=== PATIENT | female | born 1955 | race Caucasian/White ===

== ENCOUNTER 2019-05-20 13:21 | Emergency (ER) | payer MEDICARE, BC ==
--- NOTE | 2019-05-20 14:06 | EDM.PDOC ---
ED HPI GENERAL MEDICAL PROBLEM - General Chief Complaint: General Stated Complaint: ELEVATED BP Time Seen by Provider: 05/20/19 13:50 Source of Information: Reports: Patient History Limitations: Reports: No Limitations - History of Present Illness INITIAL COMMENTS - FREE TEXT/NARRATIVE: Patient comes into the emergency department with complaint of elevated blood pressure. Patient states that she did have a headache this morning and ended up taking her blood pressure and noted that it was elevated. Patient does not have a history of hypertension but has been told by her primary care doctor that her blood pressure has been elevated in the past. Patient did have a cortisone injection in here knee yesterday and she is unsure if it's related or not. Patient denies any numbness, tingling, shortness of breath, visual changes, blurred vision, chest pain, nausea, or peripheral edema. Patient states that she presented to the emergency department due to the concern regarding the blood pressure reading on her machine at home but has no active concerns or complaints. Onset: Sudden Severity: Mild Improves with: Reports: None Worsens with: Reports: None Associated Symptoms: Reports: No Other Symptoms - Related Data Allergies Allergy/AdvReac Type Severity Reaction Status Date / Time No Known Drug Allergies Allergy Other Verified 06/22/15 08:16 theophylline AdvReac Anxiety Verified 06/22/15 08:16 Home Meds: Home Meds Albuterol Sulfate [Proair Hfa] 1 - 2 puff PO QID PRN 06/19/15 [History] Aspirin [Halfprin] 81 mg PO DAILY 06/19/15 [History] Calcium Carbonate [Calcium] 1 tab PO DAILY 06/19/15 [History] Chromium Amino Acid Chelate [Chromium] 1 cap PO BID 06/19/15 [History] Fluticasone/Salmeterol [Advair Hfa 230-21 Mcg Inhaler] 1 puff PO BID 06/19/15 [ History] Levothyroxine 1 tab PO DAILY 06/19/15 [History] Montelukast [Singulair] 1 tab PO DAILY 06/19/15 [History] Phentermine 0.5 tab PO DAILY 06/19/15 [History] metFORMIN [Glucophage] 1,000 mg PO DAILY 06/19/15 [History] Past Medical History HEENT History: Reports: Glaucoma Cardiovascular History: Reports: Hypertension Respiratory History: Reports: Asthma Gastrointestinal History: Reports: Cirrhosis, Colon Polyp Other Gastrointestinal History: heme + stool [employer]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 Constitutional: Reports: No Symptoms HEENT: Reports: No Symptoms Respiratory: Reports: No Symptoms Cardiovascular: Reports: No Symptoms Endocrine: Reports: No Symptoms GI/Abdominal: Reports: No Symptoms : Reports: No Symptoms Musculoskeletal: Reports: No Symptoms Skin: Reports: No Symptoms Neurological: Reports: No Symptoms Psychiatric: Reports: No Symptoms Hematologic/Lymphatic: Reports: No Symptoms Immunologic: Reports: No Symptoms ED EXAM, GENERAL - Physical Exam Exam: See Below Exam Limited By: No Limitations General Appearance: Alert, WD/WN, No Apparent Distress Eye Exam: Bilateral Eye: EOMI, PERRL Ears: Normal External Exam, Normal Canal, Hearing Grossly Normal, Normal TMs Head: Atraumatic, Normocephalic Neck: Normal Inspection, Supple, Non-Tender, Full Range of Motion Respiratory/Chest: No Respiratory Distress, No Accessory Muscle Use, Chest Non- Tender Cardiovascular: Normal Peripheral Pulses, Regular Rate, Rhythm, No Edema Extremities: Normal Inspection, Normal Range of Motion, Non-Tender, No Pedal Edema, Normal Capillary Refill Neurological: Alert, Oriented, CN II-XII Intact, Normal Gait, No Motor/Sensory Deficits Psychiatric: Normal Affect, Normal Mood Skin Exam: Warm, Dry, Intact Course - Re-Assessments/Exams Free Text/Narrative Re-Assessment/Exam: 05/20/19 14:09 Patient has no concerns or complaints. Patient states that she feels back to her baseline. Departure - Departure Time of Disposition: 14:00 Disposition: Home, Self-Care 01 Condition: Good Clinical Impression: Elevated blood pressure reading - Discharge Information *PRESCRIPTION DRUG MONITORING PROGRAM REVIEWED*: Not Applicable *COPY OF PRESCRIPTION DRUG MONITORING REPORT IN PATIENT HEATH: Not Applicable Instructions: How to Take Your Blood Pressure, [id number], Preventing Hypertension Referrals: April Braga MD [Primary Care Provider] - Forms: ED Department Discharge Additional Instructions: 1. take your blood pressures same time of day after resting for 15 minutes with legs uncrossed for 5 days and record the numbers 2. Follow up with your PCP with the readings for further recommendations and management 3. Activity and diet as tolerated 4. Call with any questions or concerns 5. Follow up with PCP or return if symptoms progress or worsen. - Assessment/Plan Assessment:: 1. Elevated blood pressure Plan: 1. Educated the patient regarding Blood pressure measurements and AHA Hypertension guidelines. 2. Also discussed with the patient to continue to take her blood pressure and a daily basis. It is advised that she take her blood pressure for the course of 5 days and record the readings. She is to then make appointment with her primary care provider to discuss the readings for further medication management. 3. Education was provided regarding activity, diet, follow-up care, blood pressure readings, and follow-up care. 4. All questions and concerns addressed prior to patient's discharge
[2019-05-20 14:15] VITALS: BP 179/87; PULSE 83
== END 2019-05-20 14:09 | disposition home or self-care (01) ==
LOC: VM.ED 13:21
DX: I10 Essential (primary) hypertension (principal); J45.909 Unspecified asthma, uncomplicated; M19.90 Unspecified osteoarthritis, unspecified site; E03.9 Hypothyroidism, unspecified; Z88.8 Allergy status to other drugs, medicaments and biological substances; Z79.82 Long term (current) use of aspirin; Z79.899 Other long term (current) drug therapy
CPT/HCPCS: 99283; 99284-GF

== ENCOUNTER 2021-02-16 15:33 | Emergency (ER) | payer MEDICARE, BC ==
--- NOTE | 2021-02-16 15:56 | EDM.PDOC ---
ED HPI GENERAL MEDICAL PROBLEM - General Stated Complaint: NOSE BLEEDS Time Seen by Provider: 02/16/21 15:46 Source of Information: Reports: Patient History Limitations: Reports: No Limitations - History of Present Illness INITIAL COMMENTS - FREE TEXT/NARRATIVE: Patient is post op day 7 from left JESUS on eliquis. She staets that she has had two nosebleeds today. each was brief and stopped without problems but she called her orthopedics surgeon and she was told to be seen in the ER. Not light headed or dizzy. eating and drinking well. no pain. no pain or fevers. Has not been picking at here nose. Also wouldlike her incision checked as there was a slight amount of rainage on the dressing - Related Data Allergies Allergy/AdvReac Type Severity Reaction Status Date / Time oxycodone Allergy Other Verified 05/20/19 14:20 theophylline AdvReac Anxiety Verified 06/22/15 08:16 Home Meds: Home Meds Albuterol Sulfate [Proair Hfa] 1 - 2 puff PO QID PRN 06/19/15 [History] Aspirin [Halfprin] 81 mg PO DAILY 06/19/15 [History] Calcium Carbonate [Calcium] 1 tab PO DAILY 06/19/15 [History] Chromium Amino Acid Chelate [Chromium] 1 cap PO BID 06/19/15 [History] Fluticasone Propion/Salmeterol [Advair Hfa 230-21 Mcg Inhaler] 1 puff PO BID 06/19/15 [History] Levothyroxine 1 tab PO DAILY 06/19/15 [History] Montelukast [Singulair] 1 tab PO DAILY 06/19/15 [History] Phentermine 0.5 tab PO DAILY 06/19/15 [History] metFORMIN [Glucophage] 1,000 mg PO DAILY 06/19/15 [History] Past Medical History HEENT History: Reports: Glaucoma Cardiovascular History: Reports: Hypertension Respiratory History: Reports: Asthma Gastrointestinal History: Reports: Cirrhosis, Colon Polyp Other Gastrointestinal History: heme + stool [employer]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 [employer]ATIC History: TSS Musculoskeletal History: Reports: Osteoarthritis, Other (See Below) Other Musculoskeletal History: Restless Leg Syndrome Psychiatric History: Reports: Depression Endocrine/Metabolic History: Reports: Hypothyroidism Other Hematologic History: leukopenia - Past Surgical History HEENT Surgical History: Reports: Eye Surgery, Laser Surgery Female Surgical History: Reports: Tubal Ligation, Other (See Below) ED ROS ENT - Review of Systems Review Of Systems: See Below Constitutional: Reports: No Symptoms HEENT: Reports: Nosebleed Respiratory: Reports: No Symptoms Cardiovascular: Reports: No Symptoms Endocrine: Reports: No Symptoms GI/Abdominal: Reports: No Symptoms : Reports: No Symptoms Musculoskeletal: Reports: No Symptoms Skin: Reports: Other (small amount of wound drainage ) Psychiatric: Reports: No Symptoms ED EXAM, ENT - Physical Exam Exam: See Below Exam Limited By: No Limitations General Appearance: Alert, WD/WN, No Apparent Distress Eye Exam: Bilateral Eye: EOMI, PERRL Nose: Other (let nare normal, right nare small area of clot on the nasal septum at [place]bocks plexus. no active bleeding) Mouth/Throat: Normal Inspection Neck: Normal Inspection Respiratory/Chest: No Respiratory Distress, Lungs Clear Cardiovascular: Normal Peripheral Pulses, Regular Rate, Rhythm Extremities: Other (left hip with surgical incision; SMall amount of serous drainage at the mid incision, no erythema, no fluctuance, no concerns for wound dehischence. ) Neurological: Alert, Oriented, CN II-XII Intact Course - Re-Assessments/Exams Free Text/Narrative Re-Assessment/Exam: 02/16/21 16:01 Offered intervention now, but not bleeding. prefers conservative care. continue the eliquis purchase a bottle of Afrin nasal spray. put vaseline in the nose to keep it moist. If your nose starts to bleed, take a cotton ball and apply a generous amount of afrin to it. put in the nostril and hold pressure for 10 minutes while leaning forward. If it does not stop afterwards, return to the ED. Change the wound dressing every day. WAtch for signs of infection like redness, change in color or odor of drainage or opening up of the incision. These changes need to be reported to Orthopedics adolfo. Departure - Departure Time of Disposition: 15:57 Disposition: Home, Self-Care 01 Condition: Good Clinical Impression: Nosebleed, Visit for wound check - Discharge Information Instructions: Nosebleed, Adult, [id number], Wound Care, Adult Additional Instructions: purchase a bottle of Afrin nasal spray. put vaseline in the nose to keep it moist. If your nose starts to bleed, take a cotton ball and apply a generous amount of afrin to it. put in the nostril and hold pressure for 10 minutes while leaning forward. If it does not stop afterwards, return to the ED. Change the wound dressing every day. WAtch for signs of infection like redness, change in color or odor of drainage or opening up of the incision. These changes need to be reported to Orthopedics adolfo.
[2021-02-16 16:10] VITALS: BP 174/87; PULSE 77
== END 2021-02-16 16:05 | disposition home or self-care (01) ==
LOC: VM.ED 15:33
DX: R04.0 Epistaxis (principal); Z48.01 Encounter for change or removal of surgical wound dressing; I10 Essential (primary) hypertension; E03.9 Hypothyroidism, unspecified; Z88.5 Allergy status to narcotic agent; Z88.8 Allergy status to other drugs, medicaments and biological substances; Z79.82 Long term (current) use of aspirin; Z79.899 Other long term (current) drug therapy
CPT/HCPCS: 99283

== ENCOUNTER 2021-06-02 11:35 | Emergency (ER) | payer MEDICARE, BC ==
--- NOTE | 2021-06-02 12:03 | EDM.PDOC ---
ED HPI GENERAL MEDICAL PROBLEM - General Chief Complaint: General Stated Complaint: SWOLLEN LEG, BLOOD CLOT? Time Seen by Provider: 06/02/21 11:45 Source of Information: Reports: Patient History Limitations: Reports: No Limitations - History of Present Illness INITIAL COMMENTS - FREE TEXT/NARRATIVE: Increasing swelling in right lower leg over past week, more painful this AM. S cher had hip surgery in Feb. Not on anticoagulant, not on aspirin. Is concerned about possibility of clot. States does take diuretic med and states it is for BP. Onset: Unknown/Unsure Onset Date: 05/26/21 (approx one week) Duration: Getting Worse Location: Reports: Lower Extremity, Right Quality: Reports: Ache Improves with: Reports: None Worsens with: Reports: Movement Context: Reports: Other (had hip surgery in Feb, was less active) Associated Symptoms: Reports: No Other Symptoms - Related Data Allergies Allergy/AdvReac Type Severity Reaction Status Date / Time oxycodone Allergy Other Verified 05/20/19 14:20 theophylline AdvReac Anxiety Verified 06/22/15 08:16 Home Meds: Home Meds Albuterol Sulfate [Proair Hfa] 1 - 2 puff PO QID PRN 06/19/15 [History] Aspirin [Halfprin] 81 mg PO DAILY 06/19/15 [History] Calcium Carbonate [Calcium] 1 tab PO DAILY 06/19/15 [History] Chromium Amino Acid Chelate [Chromium] 1 cap PO BID 06/19/15 [History] Fluticasone Propion/Salmeterol [Advair Hfa 230-21 Mcg Inhaler] 1 puff PO BID 06/19/15 [History] Levothyroxine 1 tab PO DAILY 06/19/15 [History] Montelukast [Singulair] 1 tab PO DAILY 06/19/15 [History] Phentermine 0.5 tab PO DAILY 06/19/15 [History] metFORMIN [Glucophage] 1,000 mg PO DAILY 06/19/15 [History] Past Medical History HEENT History: Reports: Glaucoma Cardiovascular History: Reports: Hypertension Respiratory History: Reports: Asthma Gastrointestinal History: Reports: Cirrhosis, Colon Polyp Other Gastrointestinal History: heme + stool PHD INTERN History: Reports: Other (See Below) Other PHD INTERN History: TSS Musculoskeletal History: Reports: Osteoarthritis, Other (See Below) Other Musculoskeletal History: Restless Leg Syndrome Psychiatric History: Reports: Depression Endocrine/Metabolic History: Reports: Hypothyroidism Other Hematologic History: leukopenia - Past Surgical History HEENT Surgical History: Reports: Eye Surgery, Laser Surgery Other HEENT Surgeries/Procedures: RIGHT EYE GI Surgical History: Reports: Colonoscopy Female Surgical History: Reports: Tubal Ligation, Other (See Below) Other Female Surgeries/Procedures: bladdar sx, mammoplasty reduction Musculoskeletal Surgical History: Reports: Hip Replacement, Knee Replacement Other Musculoskeletal Surgeries/Procedures:: 7 days post op total hip replacement ED ROS GENERAL - Review of Systems Review Of Systems: Comprehensive ROS is negative, except as noted in HPI. ED EXAM, GENERAL - Physical Exam Exam: See Below Exam Limited By: No Limitations General Appearance: Alert, No Apparent Distress Eye Exam: Bilateral Eye: EOMI, Normal Inspection Head: Atraumatic, Normocephalic Neck: Supple, Full Range of Motion Respiratory/Chest: No Respiratory Distress, Lungs Clear, Normal Breath Sounds, No Accessory Muscle Use, Chest Non-Tender Cardiovascular: Normal Peripheral Pulses, Regular Rate, Rhythm, Other (Right pretibial 1+, left pretibial trace, right ankle edema) Peripheral Pulses: 1+: Posterior Tibial (L), Posterior Tibial (R), Dorsalis Pedis (L), Dorsalis Pedis (R) Extremities: Normal Capillary Refill, Other (Right pretibial 1+, left pretibial trace, right ankle edema) Neurological: Alert, Oriented, Normal Cognition, No Motor/Sensory Deficits Psychiatric: Normal Affect, Normal Mood Skin Exam: Warm, Dry, Intact, Normal Color, No Rash Lymphatic: No Adenopathy Course - Orders/Labs/Meds Labs: Laboratory Tests 06/02/21 Range/Units 12:04 D-Dimer, Quantitative 1.07 H (<=0.58) mg/LFEU - Re-Assessments/Exams Free Text/Narrative Re-Assessment/Exam: 06/02/21 12:36 D-dimer 1.07, spoke with [facility] provider on-call, Dr. Butcher. Will send to facility with ultrasound today. Free Text/Narrative Re-Assessment/Exam: 06/02/21 12:56 Dr. Trinh in ER at [facility] accepted. Pt want to go POV. Departure - Departure Time of Disposition: 13:[address] ([facility] ER) Disposition: DC/Tfer to Acute Hospital 02 Condition: Good Clinical Impression: Right leg pain - Discharge Information Referrals: April Braga MD [Primary Care Provider] - Forms: ED Department Discharge, Interfacility Transfer EMTALA Additional Instructions: Go to [facility] ER - Problem List & Annotations (1) Right leg pain SNOMED Code(s): 436688379 Code(s): M79.604 - PAIN IN RIGHT LEG Status: Acute Current Visit: Yes - Problem List Review Problem List Initiated/Reviewed/Updated: Yes
[2021-06-02 14:39] VITALS: BP 187/84
== END 2021-06-02 13:03 | disposition short-term general hospital (02) ==
LOC: VM.ED 11:35
DX: M79.604 Pain in right leg (principal); I10 Essential (primary) hypertension; J45.909 Unspecified asthma, uncomplicated; E03.9 Hypothyroidism, unspecified; Z88.8 Allergy status to other drugs, medicaments and biological substances; Z79.82 Long term (current) use of aspirin; Z79.84 Long term (current) use of oral hypoglycemic drugs; Z79.899 Other long term (current) drug therapy
CPT/HCPCS: 36415; 85379; 99283

== ENCOUNTER 2022-10-19 16:06 | Emergency (ER) | payer MEDICARE, BC ==
[2022-10-19 16:56] VITALS: BP 135/74; PULSE 78
[2022-10-19] MEDS: Take Home: predniSONE 20 MG, 2 Tab Pack PO ONE (16:56)
== END 2022-10-19 16:57 | disposition home or self-care (01) ==
LOC: VM.ED 16:06
DX: L50.9 Urticaria, unspecified (principal); E03.9 Hypothyroidism, unspecified; M19.90 Unspecified osteoarthritis, unspecified site; J45.909 Unspecified asthma, uncomplicated; I10 Essential (primary) hypertension; Z79.82 Long term (current) use of aspirin; Z79.899 Other long term (current) drug therapy; Z88.5 Allergy status to narcotic agent; Z88.8 Allergy status to other drugs, medicaments and biological substances
CPT/HCPCS: 99282; J7512; 99283

== ENCOUNTER 2022-12-13 21:44 | Emergency (ER) | payer MEDICARE, BC ==
[2022-12-13 22:18] LABS: EOSINOPHILS ABSOLUTE AUTO 0.1 x10^3/uL (0.0-0.5); HEMATOCRIT 43.1 % (33.0-47.0); HEMOGLOBIN 14.8 g/dL (12.0-16.0); IMMATURE GRAN ABSOLUTE AUTO 0.02 x10^3/uL (0.00-0.07); LYMPHOCYTES ABSOLUTE AUTO 0.3 x10^3/uL (1.0-4.8); LYMPHOCYTES PERCENT AUTO 5.4 % (25.0-50.0); MEAN CORPUSCULAR HEMOGLOBIN 31.4 pg (26.0-32.0); MEAN CORPUSCULAR HGB CONC 34.3 g/dL (32.0-36.0); MEAN CORPUSCULAR VOLUME 91.5 fL (78.0-93.0); MONOCYTES ABSOLUTE AUTO 0.5 x10^3/uL (0.0-0.8); MONOCYTES PERCENT AUTO 7.8 % (2.0-11.0); NEUTROPHILS ABSOLUTE AUTO 5.2 x10^3/uL (1.8-7.7); NEUTROPHILS PERCENT AUTO 85.5 % (50.0-80.0); RED BLOOD CELL COUNT 4.71 x10^6/uL (4.00-5.50); WHITE BLOOD CELL COUNT,WBC 6.1 x10^3/uL (4.0-10.0)
[2022-12-13 22:19] LABS: BILIRUBIN,URINE SMALL (NEGATIVE); COLOR,URINE DARK YELLOW (YELLOW); GLUCOSE,URINE NEGATIVE (NEGATIVE); KETONES,URINE TRACE mg/dL (NEGATIVE); LEUKOCYTE ESTERASE,URINE NEGATIVE (NEGATIVE); NITRITE,URINE NEGATIVE (NEGATIVE); OCCULT BLOOD,URINE NEGATIVE (NEGATIVE); PROTEIN,URINE 30 mg/dL (NEGATIVE)
[2022-12-13 22:31] LABS: PLATELET COUNT,PLT 124 x10^3/uL (130-400)
[2022-12-13] MEDS: Ondansetron 4 MG/2 ML SDV IVPUSH ONE (22:33)
[2022-12-13] MEDS: Sodium Chloride 0.9% 1,000 ML IV ONE (22:33)
[2022-12-13 22:35] LABS: A/G RATIO 0.97; ALANINE AMINOTRANSFERASE,ALT 33 U/L (14-59); ALBUMIN 3.5 g/dL (3.4-5.0); ALKALINE PHOSPHATASE 139 U/L (46-116); ASPARTATE AMNIOTRANSFERASE,AST 43 U/L (15-37); BLOOD UREA NITROGEN,BUN 12 mg/dL (7-18); C-REACTIVE PROTEIN 0.75 mg/dL (<=0.30); CALCIUM 8.7 mg/dL (8.5-10.1); CARBON DIOXIDE,CO2 24 mmol/L (21-32); CHLORIDE,CL 108 mmol/L (98-107); CREATININE 0.5 mg/dL (0.55-1.02); GLUCOSE RANDOM 123 mg/dL (70-99); MAGNESIUM 1.9 mg/dL (1.8-2.4); POTASSIUM,K 3.9 mmol/L (3.5-5.1); PROTEIN TOTAL,TP 7.1 g/dL (6.4-8.2); SODIUM,NA 144 mmol/L (136-145)
[2022-12-13 22:36] LABS: ANION GAP 15.9 mmol/L (5-15); ESTIMATED GFR 101 mL/min (>=60)
[2022-12-13 22:37] LABS: BACTERIA,URINE RARE /HPF (NOT SEEN); MUCUS,URINE MANY /LPF (NOT SEEN); RBC,URINE 0-5 /HPF (NOT SEEN); SQUAMOUS EPITHELIAL CELLS,UR FEW /HPF (NOT SEEN); WBC,URINE 0-5 /HPF (NOT SEEN)
[2022-12-13 22:38] LABS: APPEARANCE,URINE SLIGHTLY CLOUDY (CLEAR)
[2022-12-13] MEDS: Take Home: Ondansetron 4 MG Tab.DIS, 5 Tab Pack PO ONE (23:40)
[2022-12-14 05:01] VITALS: BP 171/93; PULSE 68
== END 2022-12-13 23:50 | disposition home or self-care (01) ==
LOC: VM.ED 21:44
DX: A08.4 Viral intestinal infection, unspecified (principal); I10 Essential (primary) hypertension; J45.909 Unspecified asthma, uncomplicated; M19.90 Unspecified osteoarthritis, unspecified site; E03.9 Hypothyroidism, unspecified; Z88.8 Allergy status to other drugs, medicaments and biological substances; Z88.5 Allergy status to narcotic agent; Z79.899 Other long term (current) drug therapy; Z79.82 Long term (current) use of aspirin
CPT/HCPCS: 36415; 80053; 81001; 83735; 85025; 86140; 96361; 96374; 99284-25; J2405; J7030; Q0162

== ENCOUNTER 2023-12-09 05:49 | Emergency (ER) | payer MEDICARE, BC ==
[2023-12-09] MEDS: Ondansetron 4 MG/2 ML SDV IVPUSH ONE ×3 (06:26→11:56)
[2023-12-09] MEDS: HYDROmorphone 1 MG/ML Syringe IVPUSH ONE ×2 (06:28→11:52)
[2023-12-09 06:34] LABS: BASOPHILS PERCENT AUTO 0.3 % (0.2-1.2); EOSINOPHILS ABSOLUTE AUTO 0.2 x10^3/uL (0.0-0.5); EOSINOPHILS PERCENT AUTO 2.8 % (0.0-4.0); HEMATOCRIT 41.4 % (33.0-47.0); HEMOGLOBIN 14.4 g/dL (12.0-16.0); IMMATURE GRAN ABSOLUTE AUTO 0.01 x10^3/uL (0.00-0.07); LYMPHOCYTES ABSOLUTE AUTO 2.3 x10^3/uL (1.0-4.8); LYMPHOCYTES PERCENT AUTO 37.5 % (25.0-50.0); MEAN CORPUSCULAR HEMOGLOBIN 31.5 pg (26.0-32.0); MEAN CORPUSCULAR HGB CONC 34.8 g/dL (32.0-36.0); MEAN CORPUSCULAR VOLUME 90.6 fL (78.0-93.0); MONOCYTES ABSOLUTE AUTO 0.7 x10^3/uL (0.0-0.8); MONOCYTES PERCENT AUTO 11.3 % (2.0-11.0); NEUTROPHILS PERCENT AUTO 47.9 % (50.0-80.0); PLATELET COUNT,PLT 132 x10^3/uL (130-400); RED BLOOD CELL COUNT 4.57 x10^6/uL (4.00-5.50); WHITE BLOOD CELL COUNT,WBC 6.2 x10^3/uL (4.0-10.0)
[2023-12-09 06:40] LABS: ALBUMIN 3.3 g/dL (3.4-5.0); ANION GAP 12.6 mmol/L (5-15); BILIRUBIN TOTAL 1.1 mg/dL (0.2-1.0); CALCIUM 9.1 mg/dL (8.5-10.1); CREATININE 0.8 mg/dL (0.55-1.02); EST CRCL DRUG DOSING (CG) 61.26 mL/min; POTASSIUM,K 3.6 mmol/L (3.5-5.1); PROTEIN TOTAL,TP 6.6 g/dL (6.4-8.2)
[2023-12-09 11:23] VITALS: BP 160/86; PULSE 71
== END 2023-12-09 12:12 | disposition short-term general hospital (02) ==
LOC: VM.ED 05:49
DX: S72.031A Displaced midcervical fracture of right femur, initial encounter for closed fracture (principal); I10 Essential (primary) hypertension; J45.909 Unspecified asthma, uncomplicated; E11.9 Type 2 diabetes mellitus without complications; Z88.5 Allergy status to narcotic agent; Z88.8 Allergy status to other drugs, medicaments and biological substances; Z79.51 Long term (current) use of inhaled steroids; Z79.890 Hormone replacement therapy; Z79.899 Other long term (current) drug therapy; I25.10 Atherosclerotic heart disease of native coronary artery without angina pectoris; W01.0XXA Fall on same level from slipping, tripping and stumbling without subsequent striking against object, initial encounter; Y93.89 Activity, other specified
CPT/HCPCS: 36415; 71045; 80053; 85025; 94760; 96374; 96375; 96376; 99285-25; J1170; J2405

== ENCOUNTER 2024-12-24 11:13 | Emergency (ER) | payer MEDICARE, BC ==
[2024-12-24 11:24] VITALS: BP 185/81; PULSE 73
[2024-12-24] MEDS: Dexamethasone 10 MG/ML SDV IM ONE (11:43)
== END 2024-12-24 11:46 | disposition home or self-care (01) ==
LOC: VM.ED 11:13
DX: L50.9 Urticaria, unspecified (principal); I25.10 Atherosclerotic heart disease of native coronary artery without angina pectoris; I10 Essential (primary) hypertension; J45.909 Unspecified asthma, uncomplicated; E03.9 Hypothyroidism, unspecified; Z88.5 Allergy status to narcotic agent; Z88.8 Allergy status to other drugs, medicaments and biological substances; Z79.51 Long term (current) use of inhaled steroids; Z79.899 Other long term (current) drug therapy; Z79.84 Long term (current) use of oral hypoglycemic drugs; Z79.890 Hormone replacement therapy; Z79.85 Long-term (current) use of injectable non-insulin antidiabetic drugs
CPT/HCPCS: 96372; 99283; J1100

== ENCOUNTER 2025-01-21 07:34 | Emergency (ER) | payer MEDICARE, BC ==
[2025-01-21 07:51] VITALS: BP 146/76; PULSE 76
[2025-01-21] MEDS: methylPREDNISolone Sodium Succinate 125 MG/2 ML SDV IM ONE (08:09)
== END 2025-01-21 08:17 | disposition home or self-care (01) ==
LOC: VM.ED 07:34
DX: L50.9 Urticaria, unspecified (principal); I10 Essential (primary) hypertension; J45.909 Unspecified asthma, uncomplicated; E03.9 Hypothyroidism, unspecified; I25.10 Atherosclerotic heart disease of native coronary artery without angina pectoris; Z88.5 Allergy status to narcotic agent; Z88.8 Allergy status to other drugs, medicaments and biological substances; Z79.51 Long term (current) use of inhaled steroids; Z79.84 Long term (current) use of oral hypoglycemic drugs
CPT/HCPCS: 96372; 99283; J2919